=== PATIENT | male | born 1975 | race African-American/Black ===

== ENCOUNTER 2023-03-11 10:43 | Observation (INO) ==
--- NOTE | 2023-03-11 11:00 | Emergency Department Note ---
History of Present Illness General Chief complaint: Hypertension Stated complaint: LIGHTHEADED,HIGH BP,SOB Time Seen by Provider: 03/11/23 10:58 History of Present Illness Maximum Pain Intensity: 6 This 47-year-old male patient presents to the emergency department from [facility] for evaluation of elevated blood pressure, shortness of breath, and weakness for the past 3 days. Symptoms have been getting progressively worse. The patient states that he has been having elevated blood pressure recently. Now he feels very weak. He is also having chest pain and is having trouble breathing. Chest pain shortness of breath gets worse with any movement. He admits to nausea, but no vomiting or abdominal pain. He rates his discomfort as 6/10. He found out he had a "hole in his heart" about 1 year ago. He states that he went to an ER "somewhere in [place]" while he was in [employer] in March 2022 and was admitted for 4-5 days with the testing that found the "hole" in his heart. He states that he never followed up with cardiology or his family doctor after being discharged from the ER because he had problems getting appointments scheduled because of his job. Currently he is at [facility] for heroin addiction. Last used heroin about 2 weeks ago. He states that he "sniffs" the heroin and states that he has never done IV drugs. Denies any other drug use and denies any alcohol us e. He is from the [place] area. He had been taking Norvasc 5 mg QD at home per patient and was just switched to amlodipine at [facility] based on their formulary. He denies any other known health problems. Home Medications Medication Instructions Recorded Confirmed Type amlodipine 5 mg tablet 10 mg PO DAILY 03/11/23 03/11/23 History Allergies Allergy/AdvReac Type Severity Reaction Status Date / Time No Known Allergies Allergy Verified 03/11/23 11:14 Past Med/Surg History Medical History Heroin abuse Hypertension Surgical History History of ankle surgery Family History (Updated 03/11/23 @ 17:28 by CLARENCE Christie) Father Cancer Mother Heart disorder Social History Smoking Status: Former smoker Do You Dip or Chew Tobacco: No; Hx Alcohol Use: Yes Hx Substance Use: Yes Last Used Substance Other:: 2 weeks ago Preferred Language: Icelandic Communication Ability: Effective Detention Officer Required: No Beliefs That Will Affect Care: None Current Living Situation: Alone Other Information That Helps Us Care for You: No Feels Safe at Home: No Is there a partner from a previous relationship who is making you feel unsafe now?: No Any Concerns about Your Family Situation: No Would You Like to Speak to Someone About Your Situation: No Safety Concerns: Feels Safe At This Time Assistive Devices: None Review of Systems See HPI for pertinent positives & negatives. Physical Exam Vital Signs Vital Signs - 24 hr 03/11/23 10:48 03/11/23 11:27 03/11/23 12:02 Temperature 36.1 C L Temperature Source Temporal Artery Scan Pulse Rate 84 81 Pulse Rate [Apical] Pulse Rate from SpO2 Sensor Pulse Rhythm Regular Pulse Strength Normal Respiratory Rate 18 Respiratory Effort / Characteristics Non-Labored Spontaneous Respiratory Depth Normal Respiratory Pattern Regular Blood Pressure 185/130 H Blood Pressure [Left Arm] Blood Pressure Mean 148 Blood Pressure Mean [Left Arm] Blood Pressure Position Sitting Pulse Oximetry 100 99 Oxygen Delivery Method Room Air Room Air Sepsis Recent Fever Within 48 Hours No Sepsis New/Unexplained Change in Mental Status No Sepsis Action Taken by Nursing No Action Required 03/11/23 12:59 03/11/23 14:07 03/11/23 14:37 Temperature Temperature Source Pulse Rate Pulse Rate [Apical] 85 82 Pulse Rate from SpO2 Sensor Pulse Rhythm Pulse Strength Respiratory Rate 19 20 Respiratory Effort / Characteristics Respiratory Depth Respiratory Pattern Blood Pressure Blood Pressure [Left Arm] 182/113 H 173/128 H 194/128 H Blood Pressure Mean Blood Pressure Mean [Left Arm] 136 143 150 Blood Pressure Position Pulse Oximetry 96 96 Oxygen Delivery Method Room Air Room Air Sepsis Recent Fever Within 48 Hours Sepsis New/Unexplained Change in Mental Status Sepsis Action Taken by Nursing 03/11/23 11:08 03/11/23 11:08 03/11/23 11:10 Temperature Temperature Source Pulse Rate 78 83 Pulse Rate [Apical] Pulse Rate from SpO2 Sensor 79 82 Pulse Rhythm Pulse Strength Respiratory Rate 20 17 Respiratory Effort / Characteristics Respiratory Depth Respiratory Pattern Blood Pressure 182/142 H Blood Pressure [Left Arm] Blood Pressure Mean 148 Blood Pressure Mean [Left Arm] Blood Pressure Position Pulse Oximetry 99 99 Oxygen Delivery Method Sepsis Recent Fever Within 48 Hours Sepsis New/Unexplained Change in Mental Status Sepsis Action Taken by Nursing 03/11/23 11:20 03/11/23 11:30 03/11/23 11:40 Temperature Temperature Source Pulse Rate 81 88 Pulse Rate [Apical] Pulse Rate from SpO2 Sensor 81 96 H 89 Pulse Rhythm Pulse Strength Respiratory Rate 17 25 H Respiratory Effort / Characteristics Respiratory Depth Respiratory Pattern Blood Pressure Blood Pressure [Left Arm] Blood Pressure Mean Blood Pressure Mean [Left Arm] Blood Pressure Position Pulse Oximetry 98 99 99 Oxygen Delivery Method Sepsis Recent Fever Within 48 Hours Sepsis New/Unexplained Change in Mental Status Sepsis Action Taken by Nursing 03/11/23 11:50 03/11/23 12:00 03/11/23 12:01 Temperature Temperature Source Pulse Rate 80 78 79 Pulse Rate [Apical] Pulse Rate from SpO2 Sensor 81 78 79 Pulse Rhythm Pulse Strength Respiratory Rate 21 21 25 H Respiratory Effort / Characteristics Respiratory Depth Respiratory Pattern Blood Pressure Blood Pressure [Left Arm] Blood Pressure Mean Blood Pressure Mean [Left Arm] Blood Pressure Position Pulse Oximetry 99 97 98 Oxygen Delivery Method Sepsis Recent Fever Within 48 Hours Sepsis New/Unexplained Change in Mental Status Sepsis Action Taken by Nursing 03/11/23 12:01 03/11/23 12:10 03/11/23 12:20 Temperature Temperature Source Pulse Rate 89 84 Pulse Rate [Apical] Pulse Rate from SpO2 Sensor 90 83 Pulse Rhythm Pulse Strength Respiratory Rate 21 22 Respiratory Effort / Characteristics Respiratory Depth Respiratory Pattern Blood Pressure 195/132 H Blood Pressure [Left Arm] Blood Pressure Mean 154 Blood Pressure Mean [Left Arm] Blood Pressure Position Pulse Oximetry 100 99 Oxygen Delivery Method Sepsis Recent Fever Within 48 Hours Sepsis New/Unexplained Change in Mental Status Sepsis Action Taken by Nursing 03/11/23 12:27 03/11/23 12:51 03/11/23 12:52 Temperature Temperature Source Pulse Rate 92 H 84 Pulse Rate [Apical] Pulse Rate from SpO2 Sensor 88 Pulse Rhythm Pulse Strength Respiratory Rate 22 19 Respiratory Effort / Characteristics Respiratory Depth Respiratory Pattern Blood Pressure 182/113 H Blood Pressure [Left Arm] Blood Pressure Mean 140 Blood Pressure Mean [Left Arm] Blood Pressure Position Pulse Oximetry 100 Oxygen Delivery Method Sepsis Recent Fever Within 48 Hours Sepsis New/Unexplained Change in Mental Status Sepsis Action Taken by Nursing 03/11/23 13:00 03/11/23 13:00 03/11/23 13:10 Temperature Temperature Source Pulse Rate 91 H 86 Pulse Rate [Apical] Pulse Rate from SpO2 Sensor Pulse Rhythm Pulse Strength Respiratory Rate 18 26 H Respiratory Effort / Characteristics Respiratory Depth Respiratory Pattern Blood Pressure 202/125 H Blood Pressure [Left Arm] Blood Pressure Mean 149 Blood Pressure Mean [Left Arm] Blood Pressure Position Pulse Oximetry Oxygen Delivery Method Sepsis Recent Fever Within 48 Hours Sepsis New/Unexplained Change in Mental Status Sepsis Action Taken by Nursing 03/11/23 13:20 03/11/23 13:30 03/11/23 13:40 Temperature Temperature Source Pulse Rate 85 91 H 91 H Pulse Rate [Apical] Pulse Rate from SpO2 Sensor Pulse Rhythm Pulse Strength Respiratory Rate 18 19 21 Respiratory Effort / Characteristics Respiratory Depth Respiratory Pattern Blood Pressure Blood Pressure [Left Arm] Blood Pressure Mean Blood Pressure Mean [Left Arm] Blood Pressure Position Pulse Oximetry Oxygen Delivery Method Sepsis Recent Fever Within 48 Hours Sepsis New/Unexplained Change in Mental Status Sepsis Action Taken by Nursing 03/11/23 13:50 03/11/23 13:52 03/11/23 14:04 Temperature Temperature Source Pulse Rate 89 89 Pulse Rate [Apical] Pulse Rate from SpO2 Sensor Pulse Rhythm Pulse Strength Respiratory Rate 24 17 Respiratory Effort / Characteristics Respiratory Depth Respiratory Pattern Blood Pressure 173/128 H Blood Pressure [Left Arm] Blood Pressure Mean 144 Blood Pressure Mean [Left Arm] Blood Pressure Position Pulse Oximetry Oxygen Delivery Method Sepsis Recent Fever Within 48 Hours Sepsis New/Unexplained Change in Mental Status Sepsis Action Taken by Nursing 03/11/23 14:30 03/11/23 14:45 03/11/23 15:00 Temperature Temperature Source Pulse Rate Pulse Rate [Apical] Pulse Rate from SpO2 Sensor Pulse Rhythm Pulse Strength Respiratory Rate Respiratory Effort / Characteristics Respiratory Depth Respiratory Pattern Blood Pressure 194/128 H 182/120 H 159/100 H Blood Pressure [Left Arm] Blood Pressure Mean 142 147 115 Blood Pressure Mean [Left Arm] Blood Pressure Position Pulse Oximetry Oxygen Delivery Method Sepsis Recent Fever Within 48 Hours Sepsis New/Unexplained Change in Mental Status Sepsis Action Taken by Nursing 03/11/23 15:16 03/11/23 15:18 Temperature Temperature Source Pulse Rate Pulse Rate [Apical] Pulse Rate from SpO2 Sensor Pulse Rhythm Pulse Strength Respiratory Rate Respiratory Effort / Characteristics Respiratory Depth Respiratory Pattern Blood Pressure 185/124 H 179/135 H Blood Pressure [Left Arm] Blood Pressure Mean 167 150 Blood Pressure Mean [Left Arm] Blood Pressure Position Pulse Oximetry Oxygen Delivery Method Sepsis Recent Fever Within 48 Hours Sepsis New/Unexplained Change in Mental Status Sepsis Action Taken by Nursing VITALS: Vitals are noted on the nurse's note and reviewed by myself. GENERAL: Non toxic, no acute distress, non-diaphoretic. SKIN: Capillary refill <2 sec. EARS: External auditory canals clear, tympanic membranes pearly boudreaux without erythema or effusion bilaterally. EYES: PERRLA. EOMI. Conjunctivae without injection, sclerae without icterus. NOSE: Patent without discharge. MOUTH: Mucous membranes moist. Uvula midline. Airway patent. NECK: Supple without nuchal rigidity. HEART: Regular rate and rhythm with possible faint murmur without gallops or rubs. LUNGS: Clear to auscultation bilaterally without wheezes, rales or rhonchi. No retractions or accessory muscle use. ABDOMEN: Positive bowel sounds x 4. Normal tympanic percussion. Soft, nontender, without masses or organomegaly. Phillips sign negative. No guarding or rebound tenderness. No focal RLQ or LLQ tenderness. MUSCULOSKELETAL: No gross musculoskeletal defects. No calf tenderness bilaterally. Negative Homans' sign. Peripheral pulses 2+ and equal throughout. NEURO: Patient was alert and oriented to person place and time. No focal neurological deficits. Course Administered Medications Clonidine HCl (Clonidine Hcl 0.1 Mg Tab) 0.1 mg PO Q8H PRN PRN Reason: Blood Pressure - High Stop: 04/10/23 18:34 Last Admin: 03/11/23 19:29 Dose: 0.1 mg Documented By: ADÁN Hydralazine HCl (Hydralazine Hcl 20 Mg/Ml Vial) 10 mg IV Q8H PRN PRN Reason: HTN Stop: 04/10/23 17:52 Last Admin: 03/11/23 18:22 Dose: 10 mg Documented By: CM Discontinued Medications Acetaminophen (Acetaminophen 500 Mg Tab) 1,000 mg PO NOW STA Stop: 03/11/23 11:44 Last Admin: 03/11/23 11:50 Dose: 1,000 mg Documented By: ML Aspirin (Aspirin Chew 324 Mg) 324 mg PO NOW STA Stop: 03/11/23 14:22 Last Admin: 03/11/23 14:27 Dose: 324 mg Documented By: ML Hydralazine HCl (Hydralazine Hcl 20 Mg/Ml Vial) 10 mg IV NOW STA Stop: 03/11/23 14:22 Last Admin: 03/11/23 14:27 Dose: 10 mg Documented By: ML Sodium Chloride (Nss) 500 mls @ 999 mls/hr IV .Q31M STA Stop: 03/11/23 11:52 Last Infusion: 03/11/23 12:19 Dose: 0 mls/hr Documented By: Admin: 03/11/23 11:36 Dose: 999 mls/hr Documented By: ML Ioversol (Optiray 320 125ml) 102 ml IV ONCE ONE Stop: 03/11/23 12:42 Last Admin: 03/11/23 12:41 Dose: 102 ml Documented By: PLB Labetalol HCl (Labetalol Hcl Iv 5 Mg/Ml 20ml) 10 mg IV NOW STA Stop: 03/11/23 15:36 Last Admin: 03/11/23 16:08 Dose: 10 mg Documented By: [employer] Co-signed By: MARTI Labetalol HCl (Labetalol Hcl Iv 5 Mg/Ml 20ml) 10 mg IV NOW STA Stop: 03/11/23 17:33 Last Admin: 03/11/23 17:49 Dose: 10 mg Documented By: CM Co-signed By: Lisinopril (Lisinopril 5 Mg Tab) 10 mg PO NOW ONE Stop: 03/11/23 11:23 Last Admin: 03/11/23 11:36 Dose: 10 mg Documented By: ML Ondansetron HCl (Ondansetron Inj 2 Mg/Ml 2 Ml Vial) 4 mg IV NOW STA Stop: 03/11/23 11:23 Last Admin: 03/11/23 11:36 Dose: 4 mg Documented By: ML Potassium Chloride (Potassium Chloride Crtab 20 Meq Tabcr) 40 meq PO NOW STA Stop: 03/11/23 16:13 Last Admin: 03/11/23 16:20 Dose: 40 meq Documented By: [employer] Medical Decision Making Differential Diagnosis Differential diagnosis includes angina, [place], pericarditis, myocarditis, aortic dissection, pleurisy, pneumothorax, PE, pneumonia, pneumomediastinum, esophagitis, esophageal spasm, GERD, perforated esophagus, perforated duodenal/gastric ulcer, pancreatitis, cholecystitis, costochondritis, musculoskeletal, bronchitis, URI, or others. Laboratory Data Attestation: I reviewed the patient's lab results. 03/11/23 11:10 03/11/23 11:10 Lab Results 03/11/23 03/11/23 03/11/23 Range/Units 11:10 11:10 11:10 WBC 9.64 (4.8-10.8) K/ul RBC 4.97 (4.70-6.10) M/uL Hgb 15.3 (14.0-18.0) g/dl Hct 43.4 (42.0-52.0) % MCV 87.3 (80.0-100.0) fL MCH 30.8 (25.0-34.0) pg MCHC 35.3 (32.0-36.0) g/dL RDW Std Deviation 43.8 (36.4-46.3) fL RDW Coeff of Kendra 13.8 (11.5-14.5) % Plt Count 343 (130-400) K/uL MPV 9.3 L (9.4-12.4) fL Immature Gran % (Auto) 0.4 % Neut % (Auto) 73.4 % Lymph % (Auto) 18.3 % [place] % (Auto) 7.5 % Eos % (Auto) 0.1 % Baso % (Auto) 0.3 % Neut # (Auto) 7.08 H (1.40-6.50) K/uL Lymph # (Auto) 1.76 (1.2-3.4) K/uL [place] # (Auto) 0.72 H (0.11-0.59) K/uL Eos # (Auto) 0.01 (0-0.50) K/uL Baso # (Auto) 0.03 (0-0.2) K/uL Immature Gran # (Auto) 0.04 (0.01-0.20) K/uL PT 10.9 (9.0-12.0) Seconds INR 1.0 (0.9-1.1) APTT 25.7 (21.0-31.0) Seconds PTT Ratio 0.9 Sodium 137 (136-145) mmol/L Potassium 3.3 L (3.5-5.1) mmol/L Chloride 101 (98-107) mmol/L Carbon Dioxide 30 (21-32) mmol/L Anion Gap 6 (3-11) BUN 9 (6-23) mg/dl Creatinine 1.40 (0.6-1.4) mg/dl Est Cr Clr Drug Dosing 68.4 ml/min Est GFR ( Amer) 68.4 ml/min Est GFR (Non-Af Amer) 59.0 ml/min BUN/Creatinine Ratio 6.4 L (10-20) Glucose 124 H (70-99(Fasting)) mg/dl Calcium 10.4 H (8.6-10.3) mg/dl Magnesium 2.0 (1.7-2.4) mg/dl Total Bilirubin 0.6 (0.2-1.0) mg/dl AST 12 L (13-39) U/L ALT 9 (7-52) U/L Alkaline Phosphatase 85 (34-104) U/L Troponin I High Sens 19.9 (0-20) pg/ml Total Protein 7.6 (6.0-8.3) gm/dl Albumin 4.7 (3.4-5.0) gm/dl Globulin 2.9 (2.5-4.0) gm/dl Albumin/Globulin Ratio 1.6 (0.9-2) Lipase 23 (11-82) U/L Urine Color Urine Appearance (Clear) Urine pH (4.5-7.5) Ur Specific [place] (1.000-1.030) Urine Protein (Negative) Urine Glucose (UA) (Negative) Urine Ketones (Negative) Urine Blood (Negative) Urine Nitrite (Negative) Urine Bilirubin (Negative) Urine Urobilinogen (Negative) Ur Leukocyte Esterase (Negative) Urine Opiates Screen (Neg) Ur Methadone, Qual (Neg) Urine Barbiturates (Neg) Ur Phencyclidine (PCP) (Neg) U Amphetamin/Meth Scrn (Neg) MDMA (Ecstasy) Screen (Neg) U Benzodiazepines Scrn (Neg) Ur Cocaine Metabolite (Neg) U Marijuana (THC) Screen (Neg) SARS-CoV-2 (PCR) (Negative) Influenza Type A (PCR) (Neg) Influenza Type B (PCR) (Neg) RSV (RT-PCR) (Neg) 03/11/23 03/11/23 03/11/23 Range/Units 11:40 13:18 13:18 WBC (4.8-10.8) K/ul RBC (4.70-6.10) M/uL Hgb (14.0-18.0) g/dl Hct (42.0-52.0) % MCV (80.0-100.0) fL MCH (25.0-34.0) pg MCHC (32.0-36.0) g/dL RDW Std Deviation (36.4-46.3) fL RDW Coeff of Kendra (11.5-14.5) % Plt Count (130-400) K/uL MPV (9.4-12.4) fL Immature Gran % (Auto) % Neut % (Auto) % Lymph % (Auto) % [place] % (Auto) % Eos % (Auto) % Baso % (Auto) % Neut # (Auto) (1.40-6.50) K/uL Lymph # (Auto) (1.2-3.4) K/uL [place] # (Auto) (0.11-0.59) K/uL Eos # (Auto) (0-0.50) K/uL Baso # (Auto) (0-0.2) K/uL Immature Gran # (Auto) (0.01-0.20) K/uL PT (9.0-12.0) Seconds INR (0.9-1.1) APTT (21.0-31.0) Seconds PTT Ratio Sodium (136-145) mmol/L Potassium (3.5-5.1) mmol/L Chloride (98-107) mmol/L Carbon Dioxide (21-32) mmol/L Anion Gap (3-11) BUN (6-23) mg/dl Creatinine (0.6-1.4) mg/dl Est Cr Clr Drug Dosing ml/min Est GFR ( Amer) ml/min Est GFR (Non-Af Amer) ml/min BUN/Creatinine Ratio (10-20) Glucose (70-99(Fasting)) mg/dl Calcium (8.6-10.3) mg/dl Magnesium (1.7-2.4) mg/dl Total Bilirubin (0.2-1.0) mg/dl AST (13-39) U/L ALT (7-52) U/L Alkaline Phosphatase (34-104) U/L Troponin I High Sens 19.5 (0-20) pg/ml Total Protein (6.0-8.3) gm/dl Albumin (3.4-5.0) gm/dl Globulin (2.5-4.0) gm/dl Albumin/Globulin Ratio (0.9-2) Lipase (11-82) U/L Urine Color Yellow Urine Appearance Clear (Clear) Urine pH 7.0 (4.5-7.5) Ur Specific [place] 1.010 (1.000-1.030) Urine Protein Negative (Negative) Urine Glucose (UA) Negative (Negative) Urine Ketones Negative (Negative) Urine Blood Negative (Negative) Urine Nitrite Negative (Negative) Urine Bilirubin Negative (Negative) Urine Urobilinogen Negative (Negative) Ur Leukocyte Esterase Negative (Negative) Urine Opiates Screen (Neg) Ur Methadone, Qual (Neg) Urine Barbiturates (Neg) Ur Phencyclidine (PCP) (Neg) U Amphetamin/Meth Scrn (Neg) MDMA (Ecstasy) Screen (Neg) U Benzodiazepines Scrn (Neg) Ur Cocaine Metabolite (Neg) U Marijuana (THC) Screen (Neg) SARS-CoV-2 (PCR) NEGATIVE (Negative) Influenza Type A (PCR) Negative (Neg) Influenza Type B (PCR) Negative (Neg) RSV (RT-PCR) Negative (Neg) 03/11/23 Range/Units 13:18 WBC (4.8-10.8) K/ul RBC (4.70-6.10) M/uL Hgb (14.0-18.0) g/dl Hct (42.0-52.0) % MCV (80.0-100.0) fL MCH (25.0-34.0) pg MCHC (32.0-36.0) g/dL RDW Std Deviation (36.4-46.3) fL RDW Coeff of Kendra (11.5-14.5) % Plt Count (130-400) K/uL MPV (9.4-12.4) fL Immature Gran % (Auto) % Neut % (Auto) % Lymph % (Auto) % [place] % (Auto) % Eos % (Auto) % Baso % (Auto) % Neut # (Auto) (1.40-6.50) K/uL Lymph # (Auto) (1.2-3.4) K/uL [place] # (Auto) (0.11-0.59) K/uL Eos # (Auto) (0-0.50) K/uL Baso # (Auto) (0-0.2) K/uL Immature Gran # (Auto) (0.01-0.20) K/uL PT (9.0-12.0) Seconds INR (0.9-1.1) APTT (21.0-31.0) Seconds PTT Ratio Sodium (136-145) mmol/L Potassium (3.5-5.1) mmol/L Chloride (98-107) mmol/L Carbon Dioxide (21-32) mmol/L Anion Gap (3-11) BUN (6-23) mg/dl Creatinine (0.6-1.4) mg/dl Est Cr Clr Drug Dosing ml/min Est GFR ( Amer) ml/min Est GFR (Non-Af Amer) ml/min BUN/Creatinine Ratio (10-20) Glucose (70-99(Fasting)) mg/dl Calcium (8.6-10.3) mg/dl Magnesium (1.7-2.4) mg/dl Total Bilirubin (0.2-1.0) mg/dl AST (13-39) U/L ALT (7-52) U/L Alkaline Phosphatase (34-104) U/L Troponin I High Sens (0-20) pg/ml Total Protein (6.0-8.3) gm/dl Albumin (3.4-5.0) gm/dl Globulin (2.5-4.0) gm/dl Albumin/Globulin Ratio (0.9-2) Lipase (11-82) U/L Urine Color Urine Appearance (Clear) Urine pH (4.5-7.5) Ur Specific [place] (1.000-1.030) Urine Protein (Negative) Urine Glucose (UA) (Negative) Urine Ketones (Negative) Urine Blood (Negative) Urine Nitrite (Negative) Urine Bilirubin (Negative) Urine Urobilinogen (Negative) Ur Leukocyte Esterase (Negative) Urine Opiates Screen Neg (Neg) Ur Methadone, Qual Neg (Neg) Urine Barbiturates Neg (Neg) Ur Phencyclidine (PCP) Neg (Neg) U Amphetamin/Meth Scrn Neg (Neg) MDMA (Ecstasy) Screen Neg (Neg) U Benzodiazepines Scrn Pos H (Neg) Ur Cocaine Metabolite Neg (Neg) U Marijuana (THC) Screen Neg (Neg) SARS-CoV-2 (PCR) (Negative) Influenza Type A (PCR) (Neg) Influenza Type B (PCR) (Neg) RSV (RT-PCR) (Neg) Imaging Data Radiologist's Impression: Chest CTA 03/11/23 11:23 CT angio chest PE protocol CLINICAL HISTORY: Chest Pain, eval for PE TECHNIQUE: Multidetector row helical CT of the chest was performed with angiographic protocol. Coronal and sagittal reformations were obtained. Coronal and sagittal MIPS were obtained from the axial data set and were submitted for review. Automated dose lowering techniques and/or adjustment according to patient size were utilized for this exam. Comparison: None available at the time of this dictation. FINDINGS: Lungs and pleura: Normal. Heart and pericardium: Heart size is normal. No pericardial effusion. Vessels: No evidence of pulmonary embolism. Mediastinum and meera: Unremarkable. Chest wall and lower neck: Unremarkable. Abdomen: Unremarkable. Bones: Degenerative changes in the thoracic spine. IMPRESSION: No acute abnormality and in particular pulmonary embolus. ACT 112: Negative or not required by law. Electronically signed by: Edy Gamble M.D. 03/11/2023 1:10 PM MDM Narrative I examined the patient. The patient has apparently been diagnosed with a "hole in his heart" approximately 1 year ago while admitted "somewhere in [place]" while he was at [facility]. The patient never had outpatient cardiology or PCP follow-up after his discharge. The patient is unsure exactly what he was diagnosed with. The patient has been in [facility] rehab for his heroin addiction. He states that he sniffs the heroin and denies ever using any IV drugs. He denies any cocaine, marijuana, or alcohol use. His last heroin use was 2 weeks ago and no drug or alcohol use in the past 2 weeks. He denies any withdrawal symptoms. He has a history of high blood pressure and was on Norvasc at home. Was switched to amlodipine after being admitted to [facility] per their formulary. However, over the past 3 days he has noticed that his blood pressure has become elevated and he has had chest pain and shortness of breath as well as fatigue during that time. An IV lock was placed and labs were drawn. Continuous quality assurance monitor body: Order was placed for continuous quality assurance monitor body. Patient was placed on the quality assurance monitor body and continuous pulse ox. Patient was noted to be in normal sinus rhythm at an initial rate of 80 bpm per my interpretation. EKG was interpreted by myself as normal sinus rhythm at 81 bpm with no acute ST or T wave changes. No EKG to compare. I had a meaningful discussion about this patient with Dr. Card who agrees with my assessment and the treatment plan. The patient was given lisinopril 10 mg p.o., normal saline solution bolus 500 mL, Tylenol 1000 mg p.o., and Zofran 4 mg IV. There was only minimal improvement of his blood pressure and he was then given hydralazine 10 mg IV. CBC without leukocytosis or anemia. Coags were normal. Potassium 3.3, calcium 10.4, glucose 124. CMP otherwise unremarkable. Lipase normal. High- sensitivity troponin x2 were normal. Urinalysis negative. Urine drug screen positive for benzodiazepines, but otherwise negative. COVID, influenza, and RSV were negative. CTA of the chest with contrast was reviewed by myself and read by radiology as above and shows no PE or other acute cardiopulmonary etiology. The case was again discussed with Dr. Card and we feel the patient would benefit from admission due to his history, persistent hypertension, and persisting symptoms. I spoke with the on-call hospitalist who agreed to admit the patient. Please refer to their dictation for further details. The patient's care was transferred in stable condition. Impression & Plan Hypertensive urgency, Chest pain, SOB (shortness of breath) Discharge Plan Visit Data Chief Complaint: Hypertension Stated Complaint: LIGHTHEADED,HIGH BP,SOB ED Provider: Dimitrios Card ED Midlevel Provider: Norah Lagos Discharge Problem: Hypertensive urgency, Chest pain, SOB (shortness of breath) Patient Disposition: Admitted As Inpatient Condition: Good Discharge Instructions Interventions: ED Discharge Assessment Last Done: 03/11/23 16:42
[2023-03-11] MEDS ORDERED: ONDANSETRON INJ 2 MG/ML 2 ML VIAL IV STA (11:22)
[2023-03-11] MEDS ORDERED: SODIUM CHLORIDE 0.9% 500 ML IV STA (11:22)
[2023-03-11] MEDS ORDERED: lisinopril 5 MG TAB PO ONE (11:22)
[2023-03-11 11:39] LABS: Basophils # (auto) 0.03 K/uL (0-0.2); Basophils % (auto) 0.3 %; Eosinophils # (auto) 0.01 K/uL (0-0.50); Eosinophils % (auto) 0.1 %; Hematocrit (blood only) 43.4 % (42.0-52.0); Hemoglobin 15.3 g/dl (14.0-18.0); Immature Granulocytes # (auto) 0.04 K/uL (0.01-0.20); Immature Granulocytes % (auto) 0.4 %; Lymphocytes # (auto) 1.76 K/uL (1.2-3.4); Lymphocytes % (auto) 18.3 %; Mean Corpuscular Hemoglobin 30.8 pg (25.0-34.0); Mean Corpuscular Hgb Conc 35.3 g/dL (32.0-36.0); Mean Corpuscular Volume 87.3 fL (80.0-100.0); Mean Platelet Volume 9.3 fL (9.4-12.4); Monocytes # (auto) 0.72 K/uL (0.11-0.59); Monocytes % (auto) 7.5 %; Neutrophils # (auto) 7.08 K/uL (1.40-6.50); Neutrophils % (auto) 73.4 %; Platelet Count 343 K/uL (130-400); RDW Coefficient of Variation 13.8 % (11.5-14.5); RDW Standard Deviation 43.8 fL (36.4-46.3); Red Blood Count 4.97 M/uL (4.70-6.10); White Blood Count 9.64 K/ul (4.8-10.8)
[2023-03-11] MEDS ORDERED: ACETAMINOPHEN 500 MG TAB PO STA (11:43)
[2023-03-11 11:55] LABS: Albumin Globulin Ratio 1.6 (0.9-2); Albumin Level 4.7 gm/dl (3.4-5.0); BUN Creatinine Ratio 6.4 (10-20); Bilirubin,Total 0.6 mg/dl (0.2-1.0); Calcium 10.4 mg/dl (8.6-10.3); Creatinine Clr Calc Pharmacy 68.4 ml/min; Est GFR (African American) 68.4 ml/min; Globulin 2.9 gm/dl (2.5-4.0); Potassium 3.3 mmol/L (3.5-5.1); Total Protein 7.6 gm/dl (6.0-8.3)
[2023-03-11 12:01] LABS: Troponin I High Sensitivity 19.9 pg/ml (0-20)
[2023-03-11 12:09] LABS: Partial Thromboplastin Ratio 0.9; Partial Thromboplastin Time 25.7 Seconds (21.0-31.0); Prothrombin Time 10.9 Seconds (9.0-12.0)
[2023-03-11 12:27] LABS: Influenza A virus by PCR Negative (Neg); Influenza B virus by PCR Negative (Neg); RSV by PCR Negative (Neg); SARS CoV2 RNA(COVID-19) Ceph NEGATIVE (Negative)
[2023-03-11] MEDS ORDERED: OPTIRAY 320 125ml IV ONE (12:41)
--- NOTE | 2023-03-11 13:11 | CT Scan Report ---
CT angio chest PE protocol CLINICAL HISTORY: Chest Pain, eval for PE TECHNIQUE: Multidetector row helical CT of the chest was performed with angiographic protocol. Quevedo l and sagittal reformations were obtained. Coronal and sagittal MIPS were obtained from the axial bruno a set and were submitted for review. Automated dose lowering techniques and/or adjustment according to patient size were utilized for this exam. Comparison: None available at the time of this dictation. FINDINGS: Lungs and pleura: Normal. Heart and pericardium: Heart size is normal. No pericardial effusion. Vessels: No evidence of pulmonary embolism. Mediastinum and meera: Unremarkable. Chest wall and lower neck: Unremarkable. Abdomen: Unremarkable. Bones: Degenerative changes in the thoracic spine. IMPRESSION: No acute abnormality and in particular pulmonary embolus. ACT 112: Negative or not required by law. Electronically signed by: Edy Gamble M.D. 03/11/2023 1:10 PM
[2023-03-11 13:34] LABS: Appearance Urine Clear (Clear); Bilirubin Urine Negative (Negative); Blood Urine Negative (Negative); Color Urine Yellow; Glucose Urine UA Negative (Negative); Ketones Urine Negative (Negative); Leukocyte Esterase Urine Negative (Negative); Nitrite Urine Negative (Negative); Protein Urine Negative (Negative); Urobilinogen Urine Negative (Negative)
[2023-03-11 13:59] LABS: Amphetamines+Metham, Urine Neg (Neg); Barbiturates, Urine Neg (Neg); Benzodiazepine, Urine Pos (Neg); Cocaine, Urine Neg (Neg); MDMA (Ecstacy), Urine Neg (Neg); Methadone, Urine Neg (Neg); Opiate, Urine Neg (Neg); Phencyclidine, Urine Neg (Neg)
[2023-03-11] MEDS ORDERED: hydrALAZINE HCL 20 MG/ML VIAL IV STA (14:21)
[2023-03-11] MEDS ORDERED: ASPIRIN CHEW 324 MG PO STA (14:21)
[2023-03-11] MEDS ORDERED: LABETALOL HCL IV 5 MG/ML 20ML IV STA ×2 (15:35→17:32)
[2023-03-11] MEDS ORDERED: POTASSIUM CHLORIDE CRTAB 20 MEQ TABCR PO STA (16:12)
--- NOTE | 2023-03-11 16:12 | History & Physical Report ---
Date of Service March 11, 2023 Assessment & Plan (1) Hypertensive urgency: (2) Chest pain: Plan: Admit to telemetry Patient presenting from [facility] drug rehab for evaluation of chest pain, shortness of breath, generalized weakness. Patient is a poor historian however reports he was admitted to the hospital sometime last year for hypertension. Only took BP meds for 1 month. Started on amlodipine 5mg at [facility] and increased to 10mg. In the ED, highest BP 202/125 CTA chest negative for acute findings Received IV hydralazine 10 mg and lisinopril 10 mg p.o. with minimal improvement Labetalol 10 mg IV x 2 given Will give additional lisinopril 10 mg -- start lisinopril 10 mg BID from tomorrow morning Continue home dose amlodipine 10 mg PRN hydralazine Obtain hypertensive secondary causes work-up with renal artery ultrasound and 24h urine metanephrines Chest pain likely secondary to hypertensive urgency HS trop negative x 2, EKG without acute ST change Continue trend troponin, resting echo (3) Heroin abuse: Plan: Last use 2 weeks ago -- patient reports he was using daily (snorting) Likely contributing to HTN DVT PROPHYLAXIS SCDs Patient seen in collaboration with Dr. Sanchez. I spent a total of 75 minutes coordinating, documenting, and providing care for this patient excluding time spent in the performance of separately billed services. This included personally reviewing all current laboratories and imaging studies, medication reconciliation, outpatient chart review, and discussion with specialists. History of Present Illness Chief Complaint: Chest pain, shortness of breath, weakness Primary Care Provider: NO PCP 47-year-old male with PMH HTN, heroin abuse, who presents to the ED for evaluation of chest pain, shortness of breath, weakness. No prior records available to review. History obtained from the patient however he is a poor historian. Patient currently at [facility] drug rehab. History of heroin abuse, patient reports last use was about 2 weeks ago. States he was using daily at that time. A few days ago, patient reports he developed symptoms of chest pain, shortness of breath, generalized weakness. Reports that shortness of breath with minimal exertion. Chest pain is midsternal and occurs intermittently, no specific causative or alleviating factors. He reports associated lightheadedness however no syncopal events. No diaphoresis or nausea. Denies any other recent illnesses, fevers, chills. Patient reports difficulty swallowing his own saliva over the past few days. States that if he does swallow it, he has been vomiting. However he is denying nausea and abdominal pain. No urinary symptoms. Patient reports being admitted to the hospital in [place] sometime last year. States he was diagnosed with high blood pressu re and " a hole in his heart". Patient states he took blood pressure medication for 1 month and did not resume or follow-up. He is unsure which hospital he was at. Patient was seen at [facility] yesterday for same symptoms. Patient was given IV labetalol and p.o. Lasix. Troponins were negative x2, EKG without acute ST changes. Patient was discharged back to [facility]. In the ED today, highest BP 202/125. Patient was given hydralazine 10 mg IV, lisinopril 10 mg p.o., Tylenol, full dose aspirin, IV Zofran, IVF. Labs show mild hypokalemia, K+ 3.3, otherwise unremarkable. CTA chest negative for acute findings. Allergies Allergy/AdvReac Type Severity Reaction Status Date / Time No Known Allergies Allergy Verified 03/11/23 11:14 Home Medications Medication Instructions Recorded Confirmed Type amlodipine 5 mg tablet 10 mg PO DAILY 03/11/23 03/11/23 History Past Med/Surg History Medical History Heroin abuse Hypertension Surgical History History of ankle surgery Family History (Updated 03/11/23 @ 17:28 by CLARENCE Christie) Father Cancer Mother Heart disorder Social History Smoking Status: Former smoker Do You Dip or Chew Tobacco: No; Hx Alcohol Use: Yes Hx Substance Use: Yes Last Used Substance Other:: 2 weeks ago Preferred Language: Syriac Communication Ability: Effective Identification Officer Required: No Beliefs That Will Affect Care: None Current Living Situation: Alone Other Information That Helps Us Care for You: No Feels Safe at Home: No Is there a partner from a previous relationship who is making you feel unsafe now?: No Any Concerns about Your Family Situation: No Would You Like to Speak to Someone About Your Situation: No Safety Concerns: Feels Safe At This Time Assistive Devices: None Review of Systems Review of Systems: ROS per HPI, all other systems reviewed and negative Physical Exam Constitutional: WD/WN, vitals as above Eyes: PERRL, conjunctivae normal, anicteric sclerae ENMT: external ear and nose normal, oropharynx normal Respiratory: normal respiratory effort, lungs clear to auscultation Cardiovascular: Rate/Rhythm: regular rate and regular rhythm Vessels: normal peripheral pulses Extremities: no edema Gastrointestinal (Abdomen): normal bowel sounds, soft, nontender, no hepatosplenomegaly Musculoskeletal: no cyanosis or clubbing, extremities motor strength 5/5 Skin: no rashes, warm and dry Neurologic: PERRL, EOMI, accommodation nl, no face palsy, no dysarthria Psychiatric: A+Ox3, euthymic affect Results & Data Results & Data Vital Signs (Past 12 Hours) Vital Signs Temp Pulse Pulse Resp BP BP Pulse Ox 03/11/23 15:18 179/135 H 03/11/23 15:16 185/124 H 03/11/23 15:00 159/100 H 03/11/23 14:45 182/120 H 03/11/23 14:30 194/128 H 03/11/23 14:04 173/128 H 03/11/23 13:52 89 17 03/11/23 13:50 89 24 03/11/23 13:40 91 H 21 03/11/23 13:30 91 H 19 03/11/23 13:20 85 18 03/11/23 13:10 86 26 H 03/11/23 13:00 91 H 18 03/11/23 13:00 202/125 H 03/11/23 12:52 84 19 03/11/23 12:51 182/113 H 03/11/23 12:27 92 H 22 100 03/11/23 12:20 84 22 99 03/11/23 12:10 89 21 100 03/11/23 12:01 195/132 H 03/11/23 12:01 79 25 H 98 03/11/23 12:00 78 21 97 03/11/23 11:50 80 21 99 03/11/23 11:40 88 25 H 99 03/11/23 11:30 99 03/11/23 11:20 81 17 98 03/11/23 11:10 83 17 99 03/11/23 11:08 78 20 99 03/11/23 11:08 182/142 H 03/11/23 14:37 82 20 194/128 H 96 03/11/23 14:07 173/128 H 03/11/23 12:59 85 19 182/113 H 96 03/11/23 12:02 81 03/11/23 11:27 99 03/11/23 10:48 36.1 C L 84 18 185/130 H 100 O2 Del Method 03/11/23 15:18 03/11/23 15:16 03/11/23 15:00 03/11/23 14:45 03/11/23 14:30 03/11/23 14:04 03/11/23 13:52 03/11/23 13:50 03/11/23 13:40 03/11/23 13:30 03/11/23 13:20 03/11/23 13:10 03/11/23 13:00 03/11/23 13:00 03/11/23 12:52 03/11/23 12:51 03/11/23 12:27 03/11/23 12:20 03/11/23 12:10 03/11/23 12:01 03/11/23 12:01 03/11/23 12:00 03/11/23 11:50 03/11/23 11:40 03/11/23 11:30 03/11/23 11:20 03/11/23 11:10 03/11/23 11:08 03/11/23 11:08 03/11/23 14:37 Room Air 03/11/23 14:07 03/11/23 12:59 Room Air 03/11/23 12:02 03/11/23 11:27 Room Air 03/11/23 10:48 Room Air Laboratory Results Short CBC 03/11/23 Range/Units 11:10 WBC 9.64 (4.8-10.8) K/ul Hgb 15.3 (14.0-18.0) g/dl Hct 43.4 (42.0-52.0) % Plt Count 343 (130-400) K/uL BMP 03/11/23 11:10 Sodium 137 Potassium 3.3 L Chloride 101 Carbon Dioxide 30 BUN 9 Creatinine 1.40 Glucose 124 H Calcium 10.4 H Liver Function 03/11/23 Range/Units 11:10 Total Bilirubin 0.6 (0.2-1.0) mg/dl AST 12 L (13-39) U/L ALT 9 (7-52) U/L Alkaline Phosphatase 85 (34-104) U/L Albumin 4.7 (3.4-5.0) gm/dl Urine 03/11/23 Range/Units 13:18 Urine Color Yellow Urine Appearance Clear (Clear) Urine pH 7.0 (4.5-7.5) Ur Specific [place] 1.010 (1.000-1.030) Urine Protein Negative (Negative) Urine Glucose (UA) Negative (Negative) Diagnostic Findings Chest CTA 03/11/23 11:23 CT angio chest PE protocol CLINICAL HISTORY: Chest Pain, eval for PE TECHNIQUE: Multidetector row helical CT of the chest was performed with an giographic protocol. Coronal and sagittal reformations were obtained. Coronal and sagittal MIPS were obtained from the axial data set and were submitted for review. Automated dose lowering techniques and/or adjustment according to patient size were utilized for this exam. Comparison: None available at the time of this dictation. FINDINGS: Lungs and pleura: Normal. Heart and pericardium: Heart size is normal. No pericardial effusion. Vessels: No evidence of pulmonary embolism. Mediastinum and meera: Unremarkable. Chest wall and lower neck: Unremarkable. Abdomen: Unremarkable. Bones: Degenerative changes in the thoracic spine. IMPRESSION: No acute abnormality and in particular pulmonary embolus. ACT 112: Negative or not required by law. Electronically signed by: Edy Gamble M.D. 03/11/2023 1:10 PM Code Status & VTE Plan VTE Prophylaxis Plan VTE Prophylaxis will be ordered: Yes Supervising Physician Co-Signing Physician Notes Pt seen and examined by myself, Senia Sanchez MD on the day of service. Care was coordinated with CLARENCE Christie. Please refer to her note for additional information. 47yoM w Hx of heroin abuse currently in rehab at [facility] presenting with chest pain and SOB in the setting of hypertensive emergency. States he was in rehab in [place] before he was transferred to a rehab center here at [facility] as he wanted to be further away from home. States that he was in opioid withdrawal before presenting to [facility] in [place] where he was treated with librium. Gives the date of March 02 as the time he started at [facility] in [place]. Was seen yesterday at the ED at [facility]. EKG there showed sinus tachycardia and BNP was elevated >300. He was discharged on amlodipine 5mg. On exam he is comfortable, AAOx3 though nursing has paged that he is shaking occasionally and agitated. Blood pressure persistently extremely high >180/100 with occasional tachycardia. CTA chest here unremarkable, potassium of 3.3 and BNP currently wnl. Replenish potassium and treat HTN with amlodipine 10mg scheduled, lisinopril 10mg BID scheduled, PRN IV hydralazine 10mg q8h with parameters as well as PRN clonidine 0.1mg q8h with parameters of SBP>180 and DBP>100. Likely still in active opioid withdrawal though pt states that he has completed withdrawal. He declines treatment for withdrawal stating he wants to go through the difficult process to remember it and not go back to it. PRN Ativan ordered in case he changes his mind. Otherwise as above. (2) Chest pain Chest pain type: unspecified Qualified Code(s): R07.9 - Chest pain, unspecified
[2023-03-11] MEDS ORDERED: ACETAMINOPHEN 325 MG TAB PO PRN (17:53)
[2023-03-11] MEDS: hydrALAZINE HCL 20 MG/ML VIAL IV PRN (18:22)
[2023-03-11] MEDS ORDERED: cloNIDine HCL 0.1 MG TAB PO PRN (18:35)
[2023-03-11] MEDS ORDERED: lisinopril 10 MG TAB PO SCH (20:00)
[2023-03-11] MEDS ORDERED: LORazepam 2 MG/1 ML VIAL IV PRN (20:04)
--- NOTE | 2023-03-11 20:14 | Communication Note ---
Date of Service: March 11, 2023 Pt states he does not want any medications to help with withdrawal as he wants to remember the process. States that he lost 3 children and was using heroin to numb the pain. But ready to discontinue use, and going through withdrawal now with difficulty to remember the process so that he doesn't go back to using it.
[2023-03-12 06:03] LABS: Hematocrit (blood only) 40.7 % (42.0-52.0); Hemoglobin 14.7 g/dl (14.0-18.0); Mean Corpuscular Hemoglobin 30.7 pg (25.0-34.0); Mean Corpuscular Hgb Conc 36.1 g/dL (32.0-36.0); Mean Platelet Volume 9.1 fL (9.4-12.4); Platelet Count 312 K/uL (130-400); RDW Coefficient of Variation 13.5 % (11.5-14.5); RDW Standard Deviation 41.9 fL (36.4-46.3); Red Blood Count 4.79 M/uL (4.70-6.10); White Blood Count 10.78 K/ul (4.8-10.8)
[2023-03-12 06:24] LABS: BUN Creatinine Ratio 8.5 (10-20); Calcium 9.5 mg/dl (8.6-10.3); Creatinine Clr Calc Pharmacy 81.1 ml/min; Est GFR (African American) 84.1 ml/min; Est GFR (Non-African American) 72.5 ml/min; Potassium 3.3 mmol/L (3.5-5.1)
[2023-03-12] MEDS: lisinopril 10 MG TAB PO SCH ×3 (07:34→20:04)
[2023-03-12] MEDS: amLODIPine BESYLATE 5 MG TAB PO SCH (07:35)
[2023-03-12] MEDS ORDERED: lisinopril 10 MG TAB PO SCH (09:00)
[2023-03-12] MEDS ORDERED: POTASSIUM CHLORIDE CRTAB 20 MEQ TABCR PO STA (09:04)
--- NOTE | 2023-03-12 09:41 | Ultrasound Report ---
DOPPLER ULTRASOUND OF THE RENAL ARTERIES CLINICAL HISTORY: Hypertension. COMPARISON STUDY: No previous studies for comparison. TECHNIQUE: Color and duplex Doppler sonography of the renal arteries and the abdominal aorta was perf ormed. FINDINGS: The peak systolic velocity within the abdominal aorta was 79 cm/s. Bilateral renal arteries and veins are patent. Peak systolic velocity within the right renal artery was 41 cm/s. Peak systoli c velocity within the left renal artery was 47 cm/s. Segmental waveforms within the kidneys were norm al. There was no hydronephrosis. IMPRESSION: No sonographic evidence for renal artery stenosis. ACT 112: Negative or not required by law. Electronically signed by: Ludin Norwood M.D. 03/12/2023 9:39 AM
--- NOTE | 2023-03-12 14:07 | Hospitalist Progress Note ---
Date of Service March 12, 2023 Assessment & Plan (1) Hypertensive urgency: Plan 47-year-old male with PMH of hypertension, heroin abuse presented to the ED 03/11 for evaluation of chest pain/shortness of breath/weakness. No prior records available to review. He reports last 2 weeks ago [employer]. Using heroin he also reports that he was a started on amlodipine once he went to [facility] drug rehab around 2 weeks ago [employer]. He is being managed for the following: Hypertensive urgency: Chest pain: Patient presenting from [facility] drug rehab for evaluation of chest pain, shortness of breath, generalized weakness. Patient is a poor historian however reports he was admitted to the hospital sometime last year for hypertension. Only took BP meds for 1 month. Started on amlodipine 5mg at [facility] and increased to 10mg. In the ED, highest BP 202/125 Troponin trends negative, EKG with no acute ST or T changes. CTA chest negative for acute findings Echo with severe concentric LVH, EF of 60 to 65%, grade 1 diastolic dysfunction. Renal artery ultrasound: No sonographic evidence of renal artery stenosis Continue home amlodipine 10 Mg, continue with lisinopril 10 mg twice daily. Continue with as needed BP medication, likely might benefit from metoprolol. Chest pain likely secondary to hypertensive urgency, no further chest pain Heroin abuse: Last use 2 weeks ago -- patient reports he was using daily (snorting). Will benefit from continuing w/ drug rehab/support on dc. Monitor for withdrawal, doubt will be any this late if his last dose were 2 weeks ago. DVT PROPHYLAXIS: SCDs Admission and Anticipated Discharge Date Admission Date: March 11, 2023 Subjective Patient seen and examined at bedside as a follow-up of hypertensive urgency on the background of heroin abuse history. Patient was lying in bed, on room air, NAD, reports no new acute event overnight, denies any chest pain or palpitation, reports feeling better, reports eating okay and moving bowels okay, denies any headache or dizziness. Physical Exam Physical Exam: GENERAL: Alert and oriented x3. NAD, on RA. HEENT: No pallor, no icterus. Pupils equal, round and reactive to light. Oral mucosa moist. NECK: No JVD, no neck masses. HEART: S1 and S2 heard. Regular rate and rhythm. No murmur, no gallop. RESPIRATORY SYSTEM: Normal AP diameter. No accessory muscle use. No wheezing, no crackles. ABDOMEN: Soft, bowel sounds present, nontender, no distention. CENTRAL NERVOUS SYSTEM: No facial droop. Speech is clear. Obeys simple commands. Moves extremities. EXTREMITIES: No edema, no erythema seen. Results & Data Results & Data Vital Signs (Past 12 Hours) Vital Signs Temp Pulse Resp BP BP Pulse Ox Pulse Ox 03/12/23 11:33 36.8 C 95 H 18 149/87 H 99 03/12/23 09:57 98 03/12/23 07:36 37.2 C 03/12/23 07:31 87 18 175/115 H 98 03/12/23 03:08 36.7 C 90 20 144/89 H 98 O2 Del Method O2 Del Method 03/12/23 11:33 Room Air 03/12/23 09:57 Room Air 03/12/23 07:36 03/12/23 07:31 Room Air 03/12/23 03:08 Room Air
--- NOTE | 2023-03-12 15:11 | Electrocardiogram Report ---
Test Reason : Blood Pressure : / mmHG Vent. Rate : 081 BPM Atrial Rate : 081 BPM P-R Int : 172 ms QRS Dur : 090 ms QT Int : 394 ms P-R-T Axes : 031 034 019 degrees QTc Int : 457 ms Normal sinus rhythm Nonspecific T wave abnormality Borderline ECG No previous ECGs available Confirmed by To Kwan ([id number]) on 03/12/2023 3:11:11 PM Referred By: REFERRED SELF Confirmed By:To Kwan
[2023-03-12] MEDS ORDERED: DIGOXIN 250 MCG in SYRINGE 9 ML IV STA (15:55)
[2023-03-12] MEDS: hydrALAZINE HCL 20 MG/ML VIAL IV PRN (16:06)
[2023-03-12] MEDS: CALCIUM CARBONATE 500 MG CHEWABLE TAB PO PRN (20:04)
[2023-03-12] MEDS ORDERED: METOPROLOL TARTRATE 25 MG TAB PO SCH (21:00)
[2023-03-12] MEDS ORDERED: PROMETHAZINE HCL 12.5 MG in SODIUM CHLORIDE 0.9% 50 ML IV PRN (22:52)
[2023-03-12] MEDS ORDERED: ACETAMINOPHEN 1,000 MG/100 ML VIAL IV STA (23:00)
[2023-03-12] MEDS ORDERED: NSS + 20MEQ KCL 20 MEQ/1,000 ML BAG IV ONE (23:15)
[2023-03-12 23:23] LABS: Magnesium 1.9 mg/dl (1.7-2.4)
[2023-03-13] MEDS: hydrALAZINE HCL 20 MG/ML VIAL IV PRN ×2 (03:52→11:48)
[2023-03-13 04:16] LABS: Appearance Urine Cloudy (Clear); Bacteria Urine Automated Negative (Negative); Bilirubin Urine Negative (Negative); Blood Urine Negative (Negative); Cast Urine Automated 0 /lpf (0-5); Color Urine Yellow; Epithelial Cell Urine Auto 0-5 /lpf (0-5); Glucose Urine UA Negative (Negative); Ketones Urine Negative (Negative); Leukocyte Esterase Urine Negative (Negative); Nitrite Urine Negative (Negative); Protein Urine Negative (Negative); Specific Gravity Urine 1.016 (1.000-1.030); Urobilinogen Urine Negative (Negative)
[2023-03-13 06:16] LABS: Hematocrit (blood only) 42.5 % (42.0-52.0); Hemoglobin 15.5 g/dl (14.0-18.0); Mean Corpuscular Hemoglobin 30.8 pg (25.0-34.0); Mean Corpuscular Hgb Conc 36.5 g/dL (32.0-36.0); Mean Corpuscular Volume 84.3 fL (80.0-100.0); Mean Platelet Volume 9.4 fL (9.4-12.4); Platelet Count 349 K/uL (130-400); RDW Coefficient of Variation 13.4 % (11.5-14.5); RDW Standard Deviation 41.2 fL (36.4-46.3); Red Blood Count 5.04 M/uL (4.70-6.10); White Blood Count 10.62 K/ul (4.8-10.8)
[2023-03-13 06:44] LABS: BUN Creatinine Ratio 9.6 (10-20); Calcium 9.5 mg/dl (8.6-10.3); Creatinine Clr Calc Pharmacy 83.2 ml/min; Est GFR (African American) 86.7 ml/min; Est GFR (Non-African American) 74.8 ml/min; Phosphorus 2.5 mg/dl (2.5-4.9); Potassium 3.4 mmol/L (3.5-5.1)
[2023-03-13] MEDS ORDERED: carvediloL 3.125 MG TAB PO SCH (08:50)
[2023-03-13] MEDS ORDERED: POTASSIUM CHLORIDE 10 MEQ TABCR PO SCH (09:00)
[2023-03-13] MEDS: lisinopril 10 MG TAB PO SCH (09:12)
[2023-03-13] MEDS: amLODIPine BESYLATE 5 MG TAB PO SCH (09:12)
[2023-03-13] MEDS: CALCIUM CARBONATE 500 MG CHEWABLE TAB PO PRN (09:15)
--- NOTE | 2023-03-13 15:23 | Discharge Summary ---
Date of Service March 13, 2023 Admission HPI Per Admitting Provider 47-year-old male with PMH HTN, heroin abuse, who presents to the ED for evaluation of chest pain, shortness of breath, weakness. No prior records available to review. History obtained from the patient however he is a poor historian. Patient currently at [facility] drug rehab. History of heroin abuse, patient reports last use was about 2 weeks ago. States he was using daily at that time. A few days ago, patient reports he developed symptoms of chest pain, shortness of breath, generalized weakness. Reports that shortness of breath with minimal exertion. Chest pain is midsternal and occurs intermittently, no specific causative or alleviating factors. He reports associated lightheadedness however no syncopal events. No diaphoresis or nausea. Denies any other recent illnesses, fevers, chills. Patient reports difficulty swallowing his own saliva over the past few days. States that if he does swallow it, he has been vomiting. However he is denying nausea and abdominal pain. No urinary symptoms. Patient reports being admitted to the hospital in [place] sometime last year. States he was diagnosed with high blood pressure and " a hole in his heart". Patient states he took blood pressure medication for 1 month and did not resume or follow-up. He is unsure which hospital he was at. Patient was seen at [facility] yesterday for same symptoms. Patient was given IV labetalol and p.o. Lasix. Troponins were negative x2, EKG without acute ST changes. Patient was discharged back to [facility]. In the ED today, highest BP 202/125. Patient was given hydralazine 10 mg IV, lisinopril 10 mg p.o., Tylenol, full dose aspirin, IV Zofran, IVF. Labs show mild hypokalemia, K+ 3.3, otherwise unremarkable. CTA chest negative for acute findings. Admission Exam Per Admitting Provider Constitutional: WD/WN, vitals as above Eyes: PERRL, conjunctivae normal, anicteric sclerae ENMT: external ear and nose normal, oropharynx normal Respiratory: normal respiratory effort, lungs clear to auscultation Cardiovascular: Rate/Rhythm: regular rate and regular rhythm Vessels: normal peripheral pulses Extremities: no edema Gastrointestinal (Abdomen): normal bowel sounds, soft, nontender, no hepatosplenomegaly Musculoskeletal: no cyanosis or clubbing, extremities motor strength 5/5 Skin: no rashes, warm and dry Neurologic: PERRL, EOMI, accommodation nl, no face palsy, no dysarthria Psychiatric: A+Ox3, euthymic affect Principal Diagnosis Hypertensive urgency History of heroin abuse Discharge Exam GENERAL: Alert and oriented x3. NAD, on RA. HEENT: No pallor, no icterus. Pupils equal, round and reactive to light. Oral mucosa moist. NECK: No JVD, no neck masses. HEART: S1 and S2 heard. Regular rate and rhythm. No murmur, no gallop. RESPIRATORY SYSTEM: Normal AP diameter. No accessory muscle use. No wheezing, no crackles. ABDOMEN: Soft, bowel sounds present, nontender, no distention. CENTRAL NERVOUS SYSTEM: No facial droop. Speech is clear. Obeys simple commands. Moves extremities. EXTREMITIES: No edema, no erythema seen. Discharge Data Allergies Allergy/AdvReac Type Severity Reaction Status Date / Time No Known Allergies Allergy Verified 03/11/23 11:14 Consultations 03/11/23 16:06 ED Decision to Admit Stat Ordered Studies 03/11/23 11:23 CT angio chest PE protocol Stat 03/12/23 US duplex renal artery Routine Hospital Course (1) Hypertensive urgency: Plan 47-year-old male with PMH of hypertension, heroin abuse presented to the ED 03/11 for evaluation of chest pain/shortness of breath/weakness. No prior records available to review. He reports last 2 weeks ago [employer]. Using heroin he also reports that he was a started on amlodipine once he went to [facility] drug rehab around 2 weeks ago [employer]. He was managed for the following: Hypertensive urgency: Chest pain: Patient presenting from [facility] drug rehab for evaluation of chest pain, shortness of breath, generalized weakness. Patient is a poor historian however reports he was admitted to the hospital sometime last year for hypertension. Only took BP meds for 1 month. Started on amlodipine 5mg at [facility] and increased to 10mg. In the ED, highest BP 202/125 Troponin trends negative, EKG with no acute ST or T changes. CTA chest negative for acute findings Echo with severe concentric LVH, EF of 60 to 65%, grade 1 diastolic dysfunction. Renal artery ultrasound: No sonographic evidence of renal artery stenosis Continue home amlodipine 10 Mg, continue with lisinopril 10 mg twice daily. We will increase the dose of Coreg to 6.25 twice daily as patient has been needing occasional as needed meds for BP control Chest pain likely secondary to hypertensive urgency, no further chest pain Heroin abuse: Last use 2 weeks ago -- patient reports he was using daily (snorting). Will benefit from continuing w/ drug rehab/support on dc. Monitor for withdrawal, doubt will be any this late if his last dose were 2 weeks ago. DVT PROPHYLAXIS: SCDs Patient is being discharged to drug rehab facility with following instruction at the point of discharge: Follow-up with your primary care physician within a week time and likely you will need labs CBC/CMP/magnesium/phosphorus. Your blood pressure had been higher while in the hospital, your blood pressure medication has been optimized. On top of your home dose of amlodipine; lisinopril and Coreg were also added. As discussed at the bedside, measure blood pressure 2 times a day and maintain a log to take to primary care physician for ongoing management of your blood pressure medication/necessary adjustment. Appreciate your effort to stay away from harmful drugs. Please make sure that you are able to get your medications today by calling your pharmacy before you leave the hospital so that your treatment continuity is not broken. Home Health Attestation I certify that this patient is under my care and that I, or a physicians retail loan originator assistant working with me, had a face to-face encounter that meets the home health [id number] encounter requirements with this patient. The encounter with the patient was in whole, or in part, for the following medical condition, which is the primary reason for home health care (list medical condition): I certify that, based on my findings, the following services are medically necessary home health services: My clinical findings support the need for the above services because: Further, I certify that my clinical findings support that this patient is homebound (i.e. absences from home require considerable and taxing effort and are for medical reasons or muslim services or infrequently or of short duration when for other reasons) because: Certification for Home Health Services: Based on the above findings, I certify that this patient is confined to the home and needs intermittent jail care, physical therapy and/or speech therapy or continues to need occupational therapy. The patient is under my care, and I have initiated the establishment of the plan of care. This patient will be followed by a physician who will periodically review the plan of care. Total Time Total Time Spent Total Time Spent (In Minutes): 45 Discharge Plan Discharge Items Patient Disposition: Drug & Alcohol Rehab Reason For Visit: HYPERTENSIVE URGENCY Discharge Diagnosis: Hypertensive urgency History of heroin abuse Condition on Discharge: Good Activity: Resume your previous activity Non-emergency contact: Primary Care Provider Call non-emergency contact if: you have any medication questions, your symptoms worsen and your temperature is above 101 Follow-up/Referrals: PCP,NO [Primary Care Provider] - Diet: Heart Healthy and Low Sodium (2gm) Addtl Attending Provider Instructions: Follow-up with your primary care physician within a week time and likely you will need labs CBC/CMP/magnesium/phosphorus. Your blood pressure had been higher while in the hospital, your blood pressure medication has been optimized. On top of your home dose of amlodipine; lisinopril and Coreg were also added. As discussed at the bedside, measure blood pressure 2 times a day and maintain a log to take to primary care physician for ongoing management of your blood pressure medication/necessary adjustment. Appreciate your effort to stay away from harmful drugs. Please make sure that you are able to get your medications today by calling your pharmacy before you leave the hospital so that your treatment continuity is not broken. Pending Studies at Discharge: Yes Stand-Alone Forms: My [facility] Skilled Items Patient informed of condition?: Yes DNR: No Discharge Level of Care: Other Communicable Disease: No Discharge Prognosis: Stable Lines: None Urinary Catheter: No Medications and DC Order Prescriptions: New carvedilol 6.25 mg Tablet 6.25 mg PO BIDM Qty: 60 0RF lisinopril 10 mg Tablet 10 mg PO BID Qty: 60 0RF potassium chloride 10 mEq Tablet,Er Particles/Crystals 10 meq PO DAILY Qty: 30 0RF Continued amlodipine 5 mg tablet 10 mg PO DAILY Discharge Orders: Discharge Order (Routine); Ordered 03/13/23 Ordered By: Vannesa Warren Admission Data Admit Date/Time: 03/11/23 15:41 Attending Provider: Vannesa Warren Admit Provider: Senia Sanchez Primary Care Provider: PCP,NO Other Providers: Senia Sanchez
[2023-03-13] MEDS ORDERED: carvediloL 6.25 MG TAB PO SCH (17:00)
[2023-03-14 13:03] LABS: 7-Aminoclonaz, Confirm NEGATIVE ng/mL (<25); Hydro-Alp Ur, GC/MS NEGATIVE ng/mL (<25); Hydroxyethylflurazepam, Conf NEGATIVE ng/mL (<50); Hydroxymidazolam Ur, GC/MS NEGATIVE ng/mL (<50); Hydroxytriazolam NEGATIVE ng/mL (<50); Lorazepam, Ur GC/MS NEGATIVE ng/mL (<50); Nordiazepam, Confirm NEGATIVE ng/mL (<50); Oxazepam Ur, GC/MS 381 ng/mL (<50); Temazepam, Confirm NEGATIVE ng/mL (<50)
== END 2023-03-13 16:34 | disposition alcohol treatment (31) | DRG 305 ==
LOC: ED 10:43 → 2S 15:41 → SUATTDRO 15:41 → INTOOBSV 15:41 → 2S 16:42